=== PATIENT | male | born 1965 | race Caucasian/White ===

== ENCOUNTER 2023-03-21 07:30 | Outpatient (RCR) | payer BC, SELFPAY | END 2023-07-19 23:59 | disposition home or self-care (01) | PROVIDERS: Visit Provider Orthopaedic Surgery | DX: M17.11 Unilateral primary osteoarthritis, right knee (principal); M25.561 Pain in right knee; M62.81 Muscle weakness (generalized); M25.659 Stiffness of unspecified hip, not elsewhere classified; Z51.89 Encounter for other specified aftercare | CPT/HCPCS: 97110; 97140; 97161 ==

== ENCOUNTER 2023-06-11 06:26 | Day surgery (SDC) | payer BC, SELFPAY ==
[2023-06-11] VITALS (11 sets, daily range): BP systolic 93–128; BP diastolic 58–89; PULSE 64–89; RESP 12–16; TEMP 36.1–36.4; O2SAT 93–97; BMI 32.8
[2023-06-11] MEDS: LACTATED RINGERS 1000 ML 1,000 ML 100 ML IV (06:50)
[2023-06-11] MEDS: SODIUM CHLORIDE 0.9 % (FLUSH) 10 ML SYRINGE IVF (07:15)
[2023-06-11] MEDS: BUPIVACAINE 0.25% 30 ML INJECTION (08:31)
--- NOTE | 2023-06-11 08:34 | P.ORPRC_ITS ---
Procedure Note Date of procedure: 06/11/23 Procedure: PREOPERATIVE DIAGNOSIS: Right knee medial meniscus tear POSTOPERATIVE DIAGNOSIS: Right knee medial meniscus tear NAME OF OPERATION: Right knee arthroscopic partial medial meniscectomy SURGEON: Merrick Dumont MD [employer] LAYOUT: CHARISSE Pacheco ANESTHESIA: Spinal ESTIMATED BLOOD LOSS: 0 mL COMPLICATIONS: None SPECIMENS: None DRAINS: None PREOPERATIVE ANTIBIOTICS: Ancef 2 gram INDICATIONS: The patient is a 58-year-old with a history of right knee medial pain. MRI scan is consistent with a medial meniscus tear. Despite appropriate nonoperative management, including activity modification, antiinflammatories, o [id number] pain medication, bracing, physical therapy, and injections they continue to have pain and disability. Operative intervention was offered. The risks, benefits and expected outcomes were discussed in detail. These included but were not limited to: Infection, bleeding, injury to blood vessel or nerve, venous thromboembolism. All questions were answered to their satisfaction. PROCEDURE: Spinal anesthesia was administered. The patient was placed supine on the operating room table. The right lower extremity was prepped and draped in the usual sterile fashion. The limb was exsanguinated with the Dharmesh bandage. The pneumatic tourniquet was inflated to 300 mmHg. A standard anterolateral portal was established. The arthroscope was introduced. The working portal was established anteromedially. Diagnostic arthroscopy was performed with findings as follows: The suprapatellar pouch is normal. Articular surface on the patella shows diffuse grade 1/2 change. Articular surface on the trochlea shows diffuse grade 2/3 change. The medial gutter is normal. The medial compartment shows diffuse grade 3 change on the medial femoral condyle, grade 2 change on the medial t ibial plateau. The medial meniscus has a complex degenerative tear of the posterior horn, primarily consisting of horizontal cleavage tearing. The notch shows the ACL to be intact. The lateral compartment shows normal articular cartilage on the lateral femoral condyle and lateral tibial plateau. The lateral meniscus is normal. The lateral gutter is normal. The posterior horn of the medial meniscus was debrided to a stable base using a combination of baskets and baljeet through the anteromedial portal. The superior leaflet was resected, preserving the inferior leaflet. Unstable chondral flaps on the medial femoral condyle were debrided with the shaver. Arthroscopic instruments were removed, the portal sites were Steri-Stripped closed, the knee was infiltrated with 30 mL of 0.25% Marcaine without epinephrine. A dry dressing was applied, the tourniquet was released. Sponge and needle counts were correct x 2. The patient tolerated the procedure well. There were no apparent complications. They were carefully transferred to the hospital bed and taken to the postanesthesia care unit in satisfactory condition. PLAN: The patient will be discharged to home. They may weightbear as tolerates. Range of motion will be unrestricted. They will follow up in the office next week for a wound check.
--- NOTE | 2023-06-11 08:47 | W.ANESCHARGE ---
Anesthesia Charges Start Date/Time Anesthesia Start Date: 06/11/23 Anesthesia Start Time: 07:39 Stop Date/Time Anesthesia Stop Date: 06/11/23 Anesthesia Stop Time: 08:41
== END 2023-06-11 10:30 | disposition home or self-care (01) ==
PROVIDERS: Visit Provider Orthopaedic Surgery
PROC: (CPT 29870; principal; 2023-06-11 08:00)
DX: M23.221 Derangement of posterior horn of medial meniscus due to old tear or injury, right knee (principal)
CPT/HCPCS: 29881; 01400; J0665; J1100; J2250; J2371; J2405; J2704; J3010; J7120